=== PATIENT | female | born 1950 | race Caucasian/White ===

== ENCOUNTER → 2016-11-19 | Day surgery (SDC) | payer MEDICARE, OTHER ==
[~2016-11-19] VITALS: Ht 160 cm; Wt 53.1 kg
[~2016-11-19] MED LIST: AUGMENTIN 875875 MG PO; CALCIUM600 M2 PO; CENTRUM1 TA1 PO; CILOXAN 5 ML5 M1 OP; CILOXAN 5 ML5 M1 OT; FOLIC + B12 1 M1 TAB PO; FORTICAL200 IU/ACT NS; HYDROXYZINE HCL25 MG PO; MELATONIN1.5 MG PO; OSTEO-BI-FLEX 21 TAB PO; PHENERGAN25 M1 PO; PLAQUENIL200 MG; TREXALL5 MG PO; ULTRAM50 MG PO; VITAMIN D400 I1 PO
--- NOTE | ~2016-11-19 | O ---
[place], [place] OPERATIVE NOTE NAME: JOSELYN GUZMAN UNIT #: [id number] ROOM: DOCTOR: LANG CONLEY MD BIRTHDATE: [birth year] DOS: 11/19/2016 INDICATIONS: A 66-year-old patient who has presented with a chief complaint of constipation, undergoing investigation. PAST MEDICAL HISTORY: Associated with osteoarthritis, rheumatoid arthritis, TIAs. PAST SURGICAL HISTORY: Minor operation and C-sections. ALLERGIES: No known medication. FAMILY HISTORY: Noncontributory. The patient is undergoing colonic screening. PROCEDURE: Today's procedure part of investigation is colonoscopy plus photographic series. PREMEDICATION: Versed and Diprivan. SCOPE: Olympus forward viewing colonoscope 10L video. REPORT: After putting the patient in the left lateral position and after application of lubricant to rectal pouch and digital examination, scope was introduced. Thereafter, under direct visualization, I advanced through the length of colon without difficulty. Base of the cecum explored, appendiceal orifice identified, and ileocecal valve was defined. Extremely tortuous colon and sigmoid colon, splenic flexure, hepatic flexure was identified; however, base of the colon was explored, appendiceal orifice identified, and ileocecal valve was defined. Scope was gradually withdrawn from ascending, transverse, descending colon, sigmoid colon. Sigmoid colon, multiple small diverticular pathology was seen. In general, mid transverse colon had a significant number of very engorged vasculature, i.e., venous vasculature. Otherwise, there was no active bleeding. The patient extubated, tolerated procedure well. IMPRESSION: Tortuous colon. Mild diverticulosis of the sigmoid colon. Engorged vasculature of transverse colon, i.e., concern about vascular compromise in superior and mesenteric flow which is going to be studied as outpatient with CTA of abdomen and pelvis. Otherwise, supportive management. DIET: High fiber diet. ACTIVITY: Ad alvino. FOLLOWUP: Routinely with you in your office. This patient's constipation best served with MiraLax and this is secondary to the presence of severe tortuosity of colon. Thank you again for kind referral. [place], [place] OPERATIVE NOTE NAME: JOSELYN GUZMAN UNIT #: [id number] ROOM: DOCTOR: LANG CONLEY MD BIRTHDATE: [birth year] LANG CONLEY MD CM:ANNIAKORD:OPERATIVE NOTE 2 5 LANG CONLEY MD 11/19/16945 interface
[2016-11-19 07:45] VITALS: BP 132/71
[2016-11-19 08:55] VITALS: BP 92/47
[2016-11-19 09:10] VITALS: BP 97/56
[2016-11-19 09:25] VITALS: BP 108/67
== END | disposition home or self-care (01) ==
LOC: SDC 11-13 09:30
DX: K63.89 Other specified diseases of intestine (principal); K57.30 Diverticulosis of large intestine without perforation or abscess without bleeding; Z86.73 Personal history of transient ischemic attack (TIA), and cerebral infarction without residual deficits; M06.9 Rheumatoid arthritis, unspecified; Z82.49 Family history of ischemic heart disease and other diseases of the circulatory system

== ENCOUNTER → 2018-06-15 | Outpatient (CLI) | payer MEDICARE, OTHER | END | disposition home or self-care (01) | LOC: RAD 06-10 11:00 | DX: Z13.820 Encounter for screening for osteoporosis (principal); M81.0 Age-related osteoporosis without current pathological fracture; N95.1 Menopausal and female climacteric states ==

== ENCOUNTER → 2019-08-16 | Outpatient (CLI) | payer MEDICARE, OTHER | END | disposition home or self-care (01) | LOC: RAD 08:49 | DX: M81.0 Age-related osteoporosis without current pathological fracture (principal); Z78.0 Asymptomatic menopausal state ==

== ENCOUNTER 2020-11-06 15:56 | Emergency (ER) | payer MEDICARE, OTHER ==
[~2020-11-06] VITALS: Ht 157.4 cm; Wt 53.5 kg
[2020-11-06] MEDS ORDERED: PERCOCET 5-3251 EACH PO (20:31)
== END 2020-11-06 20:49 | disposition home or self-care (01) ==
LOC: ED 15:56
DX: M48.56XA Collapsed vertebra, not elsewhere classified, lumbar region, initial encounter for fracture (principal); Z79.899 Other long term (current) drug therapy; Z98.890 Other specified postprocedural states; V80.010A Animal-rider injured by fall from or being thrown from horse in noncollision accident, initial encounter; Y93.89 Activity, other specified; Y92.89 Other specified places as the place of occurrence of the external cause; Y99.8 Other external cause status; M06.9 Rheumatoid arthritis, unspecified

== ENCOUNTER → 2021-01-14 | Outpatient (CLI) | payer MEDICARE, OTHER ==
[~2021-01-14] MED LIST changes: +PERCOCET 5-3251 EACH PO
== END | disposition home or self-care (01) ==
LOC: RAD 09:00
PROVIDERS: ATTEND Family Medicine
DX: M81.0 Age-related osteoporosis without current pathological fracture (principal)

== ENCOUNTER → 2023-01-16 | Outpatient (CLI) | payer MEDICARE, OTHER ==
[2023-01-16 13:38] LABS: BASO % 0.6 % (0.0-1.0); EOS # 0.2 10*3/uL (0.0-0.4); EOS % 2.8 % (1.0-4.0); HEMATOCRIT 42.4 % (37.0-47.0); LYMPH # 1.3 10*3/uL (1.3-4.4); LYMPH % 24.2 % (27.0-41.0); MEAN CELL VOLUME 100.5 fl (81.0-99.0); MEAN CORPUSCULAR HGB 32.9 pg (27.0-31.0); MEAN CORPUSCULAR HGB CONC 32.8 g/dl (33.0-37.0); MEAN PLATELET VOLUME 10.8 fl (9.6-12.3); MONO # 0.4 10*3/uL (0.1-1.0); MONO % 6.8 % (3.0-9.0); NEUT # 3.5 10*3/uL (2.3-7.9); NEUT % 65.4 % (47.0-73.0); PLATELET COUNT AUTOMATED 213 10*3/uL (130-400); RED BLOOD COUNT 4.22 10*6/uL (4.10-5.10); RED CELL DISTRI WIDTH 12.6 % (0-14.5); WHITE BLOOD COUNT 5.3 10*3/uL (4.8-10.8)
[2023-01-16 13:54] LABS: BILIRUBIN Negative (Negative); BLOOD Negative (Negative); CLARITY Clear (Clear); COLOR Yellow (Yellow); GLUCOSE Negative (Negative); KETONE Negative (Negative); LEUKO ESTERASE Negative (Negative); NITRITE Negative (Negative); SPECIFIC GRAVITY 1.015 (1.001-1.030); UROBILINOGEN 0.2 E.U./dl (0.0-1.0)
[2023-01-16 14:03] LABS: RBC 0-2 rbc/hpf (0-2); WBC 0-2 wbc/hpf (0-5)
[2023-01-16 14:08] LABS: ALKALINE PHOSPHATASE 62 U/L (46-116); BUN 19 mg/dl (9-23); CHLORIDE 109 mmol/L (98-107); CHOLESTEROL 221 mg/dL (<200); GAMMA GLUTAMYL TRANSPEPTIDASE 13 U/L (0-73); LDL CHOLESTEROL 121 mg/dL (9-159); POTASSIUM 4.5 mmol/L (3.4-5.1); SGPT/ALT 25 U/L (10-49); T3 UPTAKE 25.2 % (22.4-36.7); THYROXINE (T4) TOTAL 6.3 ug/dl (4.5-10.9); TRIGLYCERIDES 76 mg/dl (<150)
== END | disposition home or self-care (01) ==
LOC: LAB → EDSTATUS 01-30 13:23
PROVIDERS: Family Medicine; ATTEND Psychiatry & Neurology Clinical Neurophysiology
DX: G31.84 Mild cognitive impairment of uncertain or unknown etiology (principal); E78.5 Hyperlipidemia, unspecified; E55.9 Vitamin D deficiency, unspecified; R79.89 Other specified abnormal findings of blood chemistry; R53.83 Other fatigue; R74.8 Abnormal levels of other serum enzymes

== ENCOUNTER → 2024-03-15 | Outpatient (CLI) | payer MEDICARE, OTHER | END | disposition home or self-care (01) | LOC: CARD 08:57 | PROVIDERS: ATTEND Internal Medicine Cardiovascular Disease | DX: I35.1 Nonrheumatic aortic (valve) insufficiency (principal); R06.09 Other forms of dyspnea ==

== ENCOUNTER → 2024-03-31 | Outpatient (CLI) | payer MEDICARE, OTHER ==
[~2024-03-31] MED LIST changes: +ENBREL50 MG/1 M2 SQ; +KRILL OIL500 MG PO; +METAMUCIL0.4 G1 PO; +PROBIOTIC250 MG PO
== END | disposition home or self-care (01) ==
LOC: CARD 00:11
PROVIDERS: ATTEND Internal Medicine Cardiovascular Disease
DX: R06.09 Other forms of dyspnea (principal); R06.02 Shortness of breath

== ENCOUNTER → 2024-08-04 | Outpatient (CLI) | payer MEDICARE, OTHER | END | disposition home or self-care (01) | LOC: CT 11:00 | PROVIDERS: ATTEND Otolaryngology Otology & Neurotology | DX: H69.83 Other specified disorders of Eustachian tube, bilateral (principal) ==